=== PATIENT | female | born 1960 | race Two or more races ===

== ENCOUNTER 2022-11-20 14:57 | Outpatient (REF) | payer OTHER, SELFPAY ==
--- NOTE | ~2022-11-20 | MM_ITS ---
EXAMINATION: MM SCREENING DIGITAL BREAST TOMOSYNTHESIS, BILATERAL CLINICAL INFORMATION: Screening. Asymptomatic. The lifetime risk of breast cancer based on the Tyrer-Cuzick Model is 4%. COMPARISON: Outside mammography: 03/23/2019, 12/02/2017 ([facility]). TECHNIQUE: Digital breast tomosynthesis is performed in both the craniocaudal and mediolateral oblique views along with computer-aided detection (CAD). Synthesized 2D images are generated from the tomosynthesis. FINDINGS: There are scattered areas of fibroglandular density (ACR BI-RADS breast composition Category b). There are no significant masses, abnormal calcifications, or other abnormalities. There is no developing density or architectural abnormality. There are scattered bilateral vascular calcifications including the anterior 9:00 left breast and mid central right breast. The axilla and skin contours are unremarkable. MM/MM tomosynthesis screening BI IMPRESSION: No mammographic evidence of malignancy. ASSESSMENT: BI-RADS 2: Benign RECOMMENDATION: Routine annual mammography screening. This patient's information was entered into a reminder system with a target due date for their next mammogram.
== END 2022-11-20 14:58 | disposition home or self-care (01) ==
LOC: HO.MAMMO 14:57
PROVIDERS: PCP Nurse Practitioner Family; Visit Provider Nurse Practitioner Family
DX: Z12.31 Encounter for screening mammogram for malignant neoplasm of breast (principal)
CPT/HCPCS: 77063; 77067

== ENCOUNTER 2023-03-18 08:29 | Outpatient (REF) | payer OTHER, SELFPAY ==
[2023-03-18 08:43] LABS: MANUAL DIFF FLAG NO
[2023-03-18 08:49] LABS: Basophils Absolute Auto 0.1 X10*3/uL (0.0-0.2); Basophils Percent Auto 0.6 % (0-2); Eosinophils Absolute Auto 0.2 X10*3/uL (0.0-0.4); Eosinophils Percent Auto 2.1 % (0-4); Imm Gran Abs Auto 0.01 X10*3/uL (0.00-0.03); Imm Gran Pct Auto 0.1 % (0.0-0.4); Lymphocytes Absolute Auto 3.3 X10*3/uL (1.2-4.9); Lymphocytes Percent Auto 42.4 % (20-40); Mean Corpuscular HGB Conc 32.6 g/dl (31.0-35.0); Mean Corpuscular Hemoglobin 29.2 pg (27.0-33.0); Mean Corpuscular Volume 89.7 fL (80.0-98.0); Mean Platelet Volume 10.4 fL (9.4-12.3); Monocytes Absolute Auto 0.5 X10*3/uL (0.1-1.2); Monocytes Percent Auto 6.8 % (2-11); Neutrophils Absolute Auto 3.7 x10*3/uL (2.0-8.3); Platelet Count 270 X10*3/uL (160-400); Red Blood Count 5.13 X10*6/uL (4.20-5.50); Red Cell Distribution Width 14.1 % (11.0-16.0); White Blood Count 7.8 X10*3/uL (4.8-10.8)
[2023-03-18 09:24] LABS: Alanine Aminotransferase 24 U/L (0-31); Albumin Level 4.6 g/dL (3.5-5.0); Alkaline Phosphatase 96 U/L (39-117); Anion Gap 12 (12-20); Aspartate Amino Transferase 32 U/L (5-31); Blood Urea Nitrogen 9 mg/dL (9-16); Calcium 9.8 mg/dL (8.4-10.2); Carbon Dioxide 28 mmol/L (22-29); Chloride 105 mmol/L (96-108); Cholesterol 264 mg/dL (<200); Estimated Glomerular Filt Rate > 60; Glucose Random 105 mg/dL (60-115); HDL Cholesterol 53 mg/dL (>40); LDL Cholesterol Calculated 172 mg/dL (<100); Potassium 4.4 mmol/L (3.3-5.1); Sodium 141 mmol/L (135-145); Total Protein 7.8 g/dL (6.5-8.0); Triglycerides 198 mg/dL (<150)
[2023-03-18 09:43] LABS: TSH reflex Free T4 2.27 uIU/mL (0.32-4.0); Vitamin D 25-OH Total 40.4 ng/mL (>30)
== END 2023-03-18 08:30 | disposition home or self-care (01) ==
LOC: HO.LAB 08:29
PROVIDERS: PCP Nurse Practitioner Family; Visit Provider Nurse Practitioner Family
DX: Z13.220 Encounter for screening for lipoid disorders (principal); Z13.29 Encounter for screening for other suspected endocrine disorder; Z13.0 Encounter for screening for diseases of the blood and blood-forming organs and certain disorders involving the immune mechanism; Z13.21 Encounter for screening for nutritional disorder
CPT/HCPCS: 36415; 80053; 80061; 82306; 84443; 85025

== ENCOUNTER 2023-04-01 13:37 | Outpatient (REF) | payer OTHER, SELFPAY ==
[2023-04-01 17:27] LABS: CT PCR NOT DETECTED (Not Detect.); NG PCR NOT DETECTED (Not Detect.)
[2023-04-05 22:59] LABS: HPV mRNA E6/E7 rflx Not Detected (Not Detected)
== END 2023-04-01 13:38 | disposition home or self-care (01) ==
LOC: HO.LNP 13:37
PROVIDERS: PCP Nurse Practitioner Family; Visit Provider Advanced Practice Midwife
DX: Z01.419 Encounter for gynecological examination (general) (routine) without abnormal findings (principal); Z20.2 Contact with and (suspected) exposure to infections with a predominantly sexual mode of transmission
CPT/HCPCS: 0353U; 87624; 88142; 99386

== ENCOUNTER 2023-04-01 13:37 | Outpatient (AMB) | payer OTHER, SELFPAY ==
--- NOTE | 2023-04-01 13:42 | MHC.OFFVIS ---
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 Scribed for CHRIS Mcgee by Cassy Alvarez, medical equipment technician, on 04/01/2023 at 1:52 pm, EST. Sr. Manager Corporate Communications Required: Yes Sr. Manager Corporate Communications Language: Station Tender Name: Ekaterina Information Interpreted: non-clinical & clinical Academic Tutor: Academic Tutor Present (Ekaterina) Allergies No Known Allergies Allergy (Verified 04/01/23 13:45) HPI HPI Comments History of Present Illness Details She is a postmenopausal woman presenting for annual exam. Doing well with no manager research development concerns. Tries to eat healthy and stay active. Good calcium and vitamin D intake. She walks to help with her high cholesterol. Currently sexually active with her spouse. Denies vaginal itching and irritation. STD screening offered; she accepts. Denies family history of breast, colon and ovarian cancer. Last pap smear 2018. She reports they were normal. Last mammogram was 11/20/2022 ([facility]) Last colonoscopy was in 11/2018. [facility] Medical History (Updated 04/01/23 @ 14:01 by Cassy Alvarez) Tubular adenoma History of stroke Surgical History (Updated 04/01/23 @ 13:58 by Cassy Alvarez) History of hernia surgery History of endoscopy History of colonoscopy Family History Mother No problems noted. Father No problems noted. 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 Cognitive needs: No Hearing needs: No Vision needs: Yes (glasses) Female Reproductive History Menstrual Menopause type: natural Total pregnancies: 2 Full term: 2 Number of Living Children: 2 Date of Mammogram: 11/20/22 ([facility]) Review of Systems Const All systems reviewed & are unremarkable except as noted in HPI and below Physical Exam Vital Signs: Last Vital Signs BP 120/82 04/01/23 13:43 BMI result Body Mass Index 28.1 Const General: cooperative, healthy appearing, no acute distress, well developed and alert Orientation/consciousness: patient oriented x3 HEENT Head: Yes normal to inspection Eyes General: appearance normal, both eyes and all related structures Neck Neck: Yes normal visual inspection Thyroid: Thyroid normal Chest Chest palpation & inspection: normal inspection of the chest Breast/axilla inspection: normal inspection of the breasts (no puckering, dimpling, peau de orange, retraction, discharge, masses) Breast/axilla palpation: normal palpation of the breasts Resp Effort & Inspection: normal respiratory effort GI Inspection: Yes normal to inspection Palpation (GI): Soft to palpation Rectal Exam - Female: deferred General: Yes bladder normal to inspection and Yes bladder normal to palpation External Female Exam: normal external appearance and normal appearance of the urethra Speculum Exam - Vagina: normal palpation and vagina atrophic Speculum Exam - Cervix: normal palpation Bimanual exam- vagina & uterus: normal bimanual exam, normal palpation, uterine size normal, bladder normal to palpation and normal palpation Bimanual Exam- Adnexa, other: normal adnexae and no masses Skin General skin exam: no rashes or lesions noted Neuro General: patient oriented x3 Cognition (Neuro): normal cognition Extrem General: Yes normal to inspection Psych Attitude: cooperative Thought process: Normal thought process present Assessment & Plan Assessment & Plan (1) Encounter for annual routine gynecological examination: Code(s): Z01.419 - Encounter for gynecological examination (general) (routine) without abnormal findings Plan: Discussed: Current recommendations for pap smears per ASCCP guidelines. Breast awareness and periodic self breast exams. Encouraged yearly mammograms. Maintaining a healthy lifestyle including a well balanced diet including Calcium and Vitamin D and routine exercise. STD screening offered; she accepts. Encouraged patient to sign up for patient portal. Contact office with any PMB. All of her questions and concerns were addressed to the best of my ability. RTO in 1 year for AG. Orders: Orders Pap Smear Today Z01.419 - Encounter for gynecological examination (general) (routine) without abnormal findings CT NG by PCR Today Z20.2 - Contact with and (suspected) exposure to infections with a predominantly sexual mode of transmission Coding Level of Care Code New Pt Prev Care 40-64y(71521) Diagnoses Encounter for annual routine gynecological examination Z01.419
[2023-04-01 13:43] VITALS: BP 120/82; BMI 28.1
== END 2023-04-01 14:05 | disposition home or self-care (01) ==
PROVIDERS: PCP Nurse Practitioner Family; Visit Provider Advanced Practice Midwife
DX: Z01.419 Encounter for gynecological examination (general) (routine) without abnormal findings (principal)
CPT/HCPCS: 99386

== ENCOUNTER 2023-08-20 09:36 | Outpatient (AMB) | payer OTHER, SELFPAY ==
--- NOTE | 2023-08-20 09:57 | A.OFFPC_ITS ---
Vital Signs 08/20/23 09:58 Height 5 ft 2.5 in Weight 145 lb 4 oz BMI 26.1 BP 136/68 Blood Pressure Location Lt brachial Position Sitting Respiration 12 Pulse 78 Pulse Source Pulse Oximeter Temp 97.5 F Temp Source Temporal Artery Scan Pulse Oximetry (%) 98 Oxygen Delivery Method Room Air Intake Visit Reasons: TC Cassy O/Fatty liver Intake Note: Patient is here for transfer of care with a history of a fatty liver. Formation Fracturing Operator Required: Yes Formation Fracturing Operator Language: Central African Accompanied by: Self / Same As Patient Allergies No Known Allergies Allergy (Verified 08/20/23 10:40) Medication List - Last Reconciled 08/20/23 by OLY Fuller- No Known Home Meds Tobacco use date assessed: 10/05/22 Dental Screening Dental Screen Date: 08/20/23 Did you have a dental visit in the last 12 months?: Yes Did you have a dental problem in the last 6 months where you did not have access to dental care?: No Was dental information given to patient?: Patient has dentist HPI HPI Comments History of Present Illness Details 62-year-old female with hyperlipidemia, MDD, H. 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 US done per her reports 11/2022,i do not have copies. No longer following w/ them for this. Reports itchy eyes, feels like sand. Had eye exam at [facility] 02/2023 - findings suggest hypermetropia, astigmatism and presbyopia Wearing glasses wants new referral to optho for mgmt Labs 04/2023 done in [place] cont to show hyperlipidemia, CMP WNL. Also reports wt loss a lot without trying over a short time . Explains further 158lbs (i dont know when this was). 145lbs. In [place] felt thirsty, worried about DM, Checked glucose 127 today it was 102 Wonders if she needs medications. HLD not on meds, interested. Repeat colon scheduled 07/2023 and cancelled by office. due 11/2023. I have asked her to schedule this. MDD - marital problems. Feels safe. Wants to talk to counselor RADHA morrow. doing home exercise. sx worse at HS. Declines referral to ortho. [facility] Medical History Tubular adenoma History of stroke Surgical History History of hernia surgery History of endoscopy History of colonoscopy Family History Mother No problems noted. Father No problems noted. 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 1. Little interest or pleasure in doing things: not at all 2. Feeling down, depressed, or hopeless: not at all 3. Trouble falling or staying asleep, or sleeping too much: not at all 4. Feeling tired or having little energy: not at all 5. Poor appetite or overeating: not at all 6. Feeling bad about yourself - or that you are a failure or have let yourself or your family down: not at all 7. Trouble concentrating on things, such as reading the newspaper or watching television: not at all 8. Moving or speaking so slowly that other people could have noticed. Or the opposite - being so fidgety or restless that you have been moving around a lot more than usual: not at all 9. Thoughts that you would be better off or of hurting yourself in some way: not at all Total score: 0 Depression Screening Interpretation: Negative Depression Screening Done: Yes 74363 - PHQ-9 Billing: Yes Source: Developed by Drs. Ming Dela Cruz, Pete Cooper and colleagues, with an educational yung from [employer]. Thrive Questionnaire Date Thrive assessed: 08/20/23 I am a: Patient What is your living situation today?: I have a steady place to live Within the past 12 months, did the food you bought not last and you didn't have the money to get more?: Never true Within the past 12 months, did you worry whether your food would run out before you got money to buy more?: Never true Do you have trouble paying for medicines?: No Do you have trouble getting transportation to medical appointments?: No Do you have trouble paying your heating and electricity bill?: No Do you have trouble taking care of your child, family member or friend?: No Do you have trouble with day-to-day activities such as bathing, preparing meals, shopping, managing finances, etc.?: No Are you currently unemployed and looking for a job?: No Are you interested in more education?: No Please select the resources that you would like help with: None Currently or been in a relationship where the following occur: no concerns reported THRIVE Score: 0 AUDIT C Alcohol Use Questionnaire (AUDIT-C) 1. How often do you have a drink containing alcohol?: Never 3. How often do you have six or more drinks on one occasion?: Never Total Score: 0 Score Reviewed/Action Taken: Yes MCAK-7 AMB Questionnaire MACK-7 Date MACK - 7 assessed: 08/20/23 Feeling nervous, anxious, or on edge: 0 = Not at all Not being able to stop or control worryin = Not at all Worrying too much about different things: 0 = Not at all Trouble relaxin = Not at all Being so restless that it is hard to sit still: 0 = Not at all Becoming easily annoyed or irritable: 0 = Not at all Feeling afraid as if something awful might happen: 0 = Not at all Total MACK-7 score (0-4 normal; 5-9 mild; 10-14 moderate; 15-21 severe): 0 Source: Developed by Drs. Ming Dela Cruz, Pete Cooper and colleagues, with an educational yung from [employer]. MACK-7 Assessment Billing MACK-7 Assessment Tool: MACK-7 Assessment 61194 Review of Systems Const All systems reviewed & are unremarkable except as noted in HPI and below Physical exam (Primary Care) Vital Signs: Last Vital Signs Temp 97.5 F 08/20/23 09:58 Pulse 78 08/20/23 09:58 Resp 12 08/20/23 09:58 BP 136/68 08/20/23 09:58 Pulse Ox 98 08/20/23 09:58 Oxygen Delivery Method Room Air 08/20/23 09:58 BMI result Body Mass Index 26.1 Tobacco/Smoking Status: Tobacco use Status Tobacco use date assessed 10/05/22 08/20/23 10:10 Patient Tobacco Use Status Never used Tobacco 08/20/23 10:10 e-Cigarette/Vaping Use Never Used 08/20/23 10:10 PHQ-9: PHQ-9 Score PHQ-9: Total score 0 08/20/23 10:34 Depression Screening Interpretation: Negative Thrive Assessment: Date of Thrive Assessment Date Thrive assessed 08/20/23 08/20/23 10:10 Currently or been in a relationship where the following occur: no concerns reported Const Other: Awake alert NAD Scleras nonicteric MMM RRR LS CTAB Abd soft, nontender, no hepatomegaly Assessment and Plan Assessment & Plan (1) Fatty liver: Comment: US November 2022 n/a to me GI at [facility] Check labs today. Code(s): K76.0 - Fatty (change of) liver, not elsewhere classified (2) Hyperlipidemia: Comment: LDL > goal on labs 04/2023. Plan to repeat labs today and start atorvastatin 40mg QHS Code(s): E78.5 - Hyperlipidemia, unspecified Qualifiers: Hyperlipidemia type: mixed hyperlipidemia Qualified Code(s): E78.2 - Mixed hyperlipidemia (3) Post-menopause: Comment: DEXA due ... will need to order at next visit Code(s): Z78.0 - Asymptomatic menopausal state (4) Weight loss, non-intentional: Comment: subjective. I dont have clinical trending for this. Will check labs. Encouraged to call GI to schedule 5 year recall due 11/2023. Code(s): R63.4 - Abnormal weight loss (5) Screening for diabetes mellitus: Code(s): Z13.1 - Encounter for screening for diabetes mellitus (6) MDD (major depressive disorder), recurrent episode: Comment: not on meds, related to marital relations. Feels safe. Referred for counseling Code(s): F33.9 - Major depressive disorder, recurrent, unspecified Qualifiers: Major depression episode severity: mild Qualified Code(s): F33.0 - Major depressive disorder, recurrent, mild (7) Hypermetropia of both eyes: Comment: refer to Optho. Last exam 2022 at [facility] Code(s): H52.03 - Hypermetropia, bilateral Plan: This note is constructed using voice recognition software. While every effort has been made to ensure accuracy in worm packer, still errors may have been included Sometimes, these errors may affect the content or meaning of the given sentence . Total time spent caring for the patient today was 60 minutes. This includes time spent before the visit reviewing the chart, time spent during the visit, and time spent after the visit on documentation Plan RTO in 2-3 weeks fu on labs and wt loss Orders: Orders Comprehensive [place]. Panel Fast Today E78.5 - Hyperlipidemia, unspecified, K76.0 - Fatty (change of) liver, not elsewhere classified, R63.4 - Abnormal weight loss, Z78.0 - Asymptomatic menopausal state Lipid Panel Today E78.5 - Hyperlipidemia, unspecified, K76.0 - Fatty (change of) liver, not elsewhere classified, R63.4 - Abnormal weight loss, Z78.0 - Asymptomatic menopausal state TSH reflex Free T4 Today E78.5 - Hyperlipidemia, unspecified, K76.0 - Fatty (change of) liver, not elsewhere classified, R63.4 - Abnormal weight loss, Z78.0 - Asymptomatic menopausal state Hemoglobin A1c Today Z13.1 - Encounter for screening for diabetes mellitus Microalbumin, Random (w Creat) Today E78.5 - Hyperlipidemia, unspecified, K76.0 - Fatty (change of) liver, not elsewhere classified, R63.4 - Abnormal weight loss Vitamin D 1,25 dihydroxy Today E78.5 - Hyperlipidemia, unspecified, K76.0 - Fatty (change of) liver, not elsewhere classified, R63.4 - Abnormal weight loss, Z78.0 - Asymptomatic menopausal state Complete Blood Count no Diff Today E78.5 - Hyperlipidemia, unspecified, K76.0 - Fatty (change of) liver, not elsewhere classified, R63.4 - Abnormal weight loss, Z78.0 - Asymptomatic menopausal state Referrals Counseling Referral F33.9 - Major depressive disorder, recurrent, unspecified Ophthalmology Referral H52.03 - Hypermetropia, bilateral Medications: New atorvastatin 40 mg PO DAILY 90 tabs 1RF Coding Level of Care Code Est Pt Level 5 (68843) Diagnoses Fatty liver K76.0 Mixed hyperlipidemia E78.2 Hyperlipidemia type: mixed hyperlipidemia Post-menopause Z78.0 Weight loss, non-intentional R63.4 Screening for diabetes mellitus Z13.1 Mild episode of recurrent major depressive disorder F33.0 Major depression episode severity: mild Hypermetropia of both eyes H52.03 Additional Codes MACK-7 Assessment Billing - MACK-7 Assessment Tool: MACK-7 Assessment [id number] ([id number])
[2023-08-20 09:58] VITALS: BP 136/68; PULSE 78; RESP 12; TEMP 36.4; O2SAT 98; BMI 26.1
== END 2023-08-20 11:22 | disposition home or self-care (01) ==
PROVIDERS: PCP Nurse Practitioner Family; Visit Provider Nurse Practitioner Family
DX: K76.0 Fatty (change of) liver, not elsewhere classified (principal); F33.0 Major depressive disorder, recurrent, mild; E78.2 Mixed hyperlipidemia; Z78.0 Asymptomatic menopausal state; R63.4 Abnormal weight loss; Z13.1 Encounter for screening for diabetes mellitus; H52.03 Hypermetropia, bilateral
CPT/HCPCS: 99215

== ENCOUNTER 2023-08-20 11:10 | Outpatient (REF) | payer OTHER, SELFPAY ==
[2023-08-20 14:22] LABS: Hematocrit 45.5 % (37.0-47.0); Hemoglobin 14.8 g/dl (12.0-16.0); Mean Corpuscular HGB Conc 32.5 g/dl (31.0-35.0); Mean Corpuscular Hemoglobin 29.6 pg (27.0-33.0); Mean Platelet Volume 11.7 fL (9.4-12.3); Platelet Count 248 X10*3/uL (160-400); Red Cell Distribution Width 13.6 % (11.0-16.0); White Blood Count 7.8 X10*3/uL (4.8-10.8)
[2023-08-20 14:41] LABS: Estimated Average Glucose 114 mg/dL; Hemoglobin A1c % 5.6 % (<6.0)
[2023-08-20 15:04] LABS: Alanine Aminotransferase 19 U/L (0-31); Albumin Level 4.6 g/dL (3.5-5.0); Alkaline Phosphatase 93 U/L (39-117); Anion Gap 11 (12-20); Aspartate Amino Transferase 23 U/L (5-31); Bilirubin Total 0.5 mg/dL (0.0-1.0); Blood Urea Nitrogen 12 mg/dL (9-16); Calcium 9.9 mg/dL (8.4-10.2); Carbon Dioxide 29 mmol/L (22-29); Chloride 105 mmol/L (96-108); Cholesterol 220 mg/dL (<200); Estimated Glomerular Filt Rate > 60; Glucose Fasting 95 mg/dL (60-99); HDL Cholesterol 57 mg/dL (>40); LDL Cholesterol Calculated 123 mg/dL (<100); Potassium 4.3 mmol/L (3.3-5.1); Sodium 141 mmol/L (135-145); Total Protein 7.8 g/dL (6.5-8.0); Triglycerides 200 mg/dL (<150)
[2023-08-20 15:23] LABS: TSH reflex Free T4 1.89 uIU/mL (0.32-4.0)
[2023-08-25 13:04] LABS: VITAMIN D (1,25 OH) D3 67 pg/mL; Vit D (1,25-Dihydroxy) Total 67 pg/mL (18-72); Vitamin D (1,25 OH) D2 <8 pg/mL
== END 2023-08-20 11:11 | disposition home or self-care (01) ==
LOC: HO.WFDLDS 11:10
PROVIDERS: Visit Provider Nurse Practitioner Family
DX: E78.5 Hyperlipidemia, unspecified (principal); K76.0 Fatty (change of) liver, not elsewhere classified; R63.4 Abnormal weight loss; Z13.1 Encounter for screening for diabetes mellitus; Z78.0 Asymptomatic menopausal state
CPT/HCPCS: 36415; 80053; 80061; 82652; 83036; 84443; 85027

== ENCOUNTER 2023-08-20 11:19 | Outpatient (REF) | payer OTHER, SELFPAY ==
[2023-08-20 14:53] LABS: Creatinine Urine 18.47 mg/dL; Microalbumin Urine < 5.0 mg/L
== END 2023-08-20 11:20 | disposition home or self-care (01) ==
LOC: HO.WFDLDS 11:19
PROVIDERS: Visit Provider Nurse Practitioner Family
DX: R63.4 Abnormal weight loss (principal); E78.5 Hyperlipidemia, unspecified; K76.0 Fatty (change of) liver, not elsewhere classified; Z78.0 Asymptomatic menopausal state
CPT/HCPCS: 82570

== ENCOUNTER 2023-09-20 12:23 | Outpatient (AMB) | payer OTHER, SELFPAY ==
--- NOTE | 2023-09-20 12:33 | MHC.PC.OV ---
Vital Signs 09/20/23 12:37 Height 5 ft 2.5 in Weight 147 lb BMI 26.5 BP 110/72 Blood Pressure Location Rt brachial Position Left Lateral Respiration 16 Pulse 73 Pulse Source Pulse Oximeter Temp 98.1 F Temp Source Oral Pulse Oximetry (%) 99 Oxygen Delivery Method Room Air Intake Visit Reasons: fu labs/wt loss Intake Note: Follow up. Lab results from August. Cold sxs started last week. SOB and cough started last night. No recent covid, flu, RSV tests Corporate Logistics Manager Required: Yes Allergies No Known Allergies Allergy (Verified 09/20/23 12:48) Medication List - Last Reconciled 09/20/23 by Tsering Carlos, ROOF CEMENT AND PAINT MAKER HELPER- atorvastatin 40 mg PO DAILY Tobacco use date assessed: 10/05/22 Dental Screening Dental Screen Date: 08/20/23 Did you have a dental visit in the last 12 months?: Yes Did you have a dental problem in the last 6 months where you did not have access to dental care?: No Was dental information given to patient?: Patient has dentist HPI HPI Comments History of Present Illness Details 62-year-old Pashto-speaking female with hyperlipidemia, MDD, H. pylori, osteoarthritis of left AC joint, CAD, CTS bilat, fatty liver, sciatica Specialists rn residential GI at [facility] maintenance Colonoscopy November 2018 positive tubular adenoma repeat in 5 years, scheduled 11/2023 DEXA * order today Pap 2019 within normal limits, March 2023 within normal limits Mammo 11/20/2022 BI-RADS 2 Had eye exam at [facility] 02/2023 - findings suggest hypermetropia, astigmatism and presbyopia Wearing glasses Corporate Logistics Manager [id number] Here today to f/u on lab results, weight loss & also c/o cold like sx cough that started 10 days ago, has felt febrile, runny nose, chest congestion, sore throat, feeling SOB Tried cough drops & tea Her weight is stable. Tells me today that she has worked really hard to alter her diet and reduce fatty foods and to intentionally lose weight to help her fatty liver. Labs from 08/20/2023 showing normal CBC, normal CMP, hemoglobin A1c 5.6 elevated total cholesterol 220, LDL 123, triglycerides 200, HDL 57, normal vitamin-D, normal TSH, normal urine microalbumin creatinine ratio [facility] Medical History Tubular adenoma History of stroke Surgical History History of hernia surgery History of endoscopy History of colonoscopy Family History Mother No problems noted. Father No problems noted. 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 Depression Screening Interpretation: Negative Depression Screening Done: Yes Source: Developed by Drs. Ming Dela Cruz, Shavon Garcia, Pete Michaels and colleagues, with an educational yung from [employer]. Thrive Questionnaire Date Thrive assessed: 08/20/23 Currently or been in a relationship where the following occur: no concerns reported THRIVE Score: 0 MACK-7 AMB Questionnaire MACK-7 Date MACK - 7 assessed: 08/20/23 Source: Developed by Drs. Ming Dela Cruz, Shavon Garcia, Pete Michaels and colleagues, with an educational yung from [employer]. Review of Systems Const All systems reviewed & are unremarkable except as noted in HPI and below Physical exam (Primary Care) Vital Signs: Last Vital Signs Temp 98.1 F 09/20/23 12:37 Pulse 73 09/20/23 12:37 Resp 16 09/20/23 12:37 BP 110/72 09/20/23 12:37 Pulse Ox 99 09/20/23 12:37 Oxygen Delivery Method Room Air 09/20/23 12:37 BMI result Body Mass Index 26.5 Tobacco/Smoking Status: Tobacco use Status Tobacco use date assessed 10/05/22 09/20/23 12:42 Patient Tobacco Use Status Never used Tobacco 09/20/23 12:42 e-Cigarette/Vaping Use Never Used 09/20/23 12:42 Depression Screening Interpretation: Negative Thrive Assessment: Date of Thrive Assessment Date Thrive assessed 08/20/23 09/20/23 12:42 Currently or been in a relationship where the following occur: no concerns reported Const Other: Awake alert NAD , mildly ill-appearing Scleras nonicteric TM intact and clear bilat Nares with clear discharge bilat, no sinus tenderness with palpation Pharynx clear, postnasal drip MMM RRR LS CTAB, dry cough noted during exam without distress Abd soft, nontender, no hepatomegaly Assessment and Plan Assessment & Plan (1) Post-menopause: Comment: DEXA ordered today. Code(s): Z78.0 - Asymptomatic menopausal state (2) Hyperlipidemia: Comment: LDL >goal start atorvastatin 40mg QHS Labs from 08/20/2023 elevated total cholesterol 220, LDL 123, triglycerides 200, HDL 57 Recheck labs in 3 months Code(s): E78.5 - Hyperlipidemia, unspecified Qualifiers: Hyperlipidemia type: mixed hyperlipidemia Qualified Code(s): E78.2 - Mixed hyperlipidemia (3) Fatty liver: Comment: [place] November 2022 n/a to [facility] GI at [place] Labs from 08/20/2023 showing normal CBC, normal CMP, hemoglobin A1c 5.6 elevated total cholesterol 220, LDL 123, triglycerides 200, HDL 57, normal vitamin-D, normal TSH, normal urine microalbumin creatinine ratio Code(s): K76.0 - Fatty (change of) liver, not elsewhere classified (4) URI (upper respiratory infection): Code(s): J06.9 - Acute upper respiratory infection, unspecified Qualifiers: URI type: acute nasopharyngitis (common cold) Qualified Code(s): J00 - Acute nasopharyngitis [common cold] Plan: We will treat with Mucinex and Flonase. Advised if her symptoms worsen or do not improve to return to the office for further management. Plan This note is constructed using voice recognition software. While every effort has been made to ensure accuracy in pack press operator, still errors may have been included Sometimes, these errors may affect the content or meaning of the given sentence . Total time spent caring for the patient today was 60 minutes. This includes time spent before the visit reviewing the chart, time spent during the visit, and time spent after the visit on documentation Orders: Orders XR DEXA axial skeleton Today Z78.0 - Asymptomatic menopausal state Comprehensive [place]. Panel Fast 12/20/23 E78.5 - Hyperlipidemia, unspecified, K76.0 - Fatty (change of) liver, not elsewhere classified Lipid Panel 12/20/23 E78.5 - Hyperlipidemia, unspecified, K76.0 - Fatty (change of) liver, not elsewhere classified Medications: New guaifenesin ER (Mucinex) 600 mg PO Q12H PRN 20 tabs 0RF congestion 10 days fluticasone propionate 50 mcg/actuation administer into each nostril 1 spray intranasal BID 16 grams 0RF Refilled atorvastatin 40 mg PO DAILY 90 tabs 1RF Patient Instructions: Return to office in 3 months to follow up on hyperlipidemia, fatty liver. Get labs done 1 week before this appointment Coding Level of Care Code Est Pt Level 5 (25420) Diagnoses Post-menopause Z78.0 Mixed hyperlipidemia E78.2 Hyperlipidemia type: mixed hyperlipidemia Fatty liver K76.0 Acute nasopharyngitis J00 URI type: acute nasopharyngitis (common cold)
[2023-09-20 12:37] VITALS: BP 110/72; PULSE 73; RESP 16; TEMP 36.7; O2SAT 99; BMI 26.5
== END 2023-09-20 13:02 | disposition home or self-care (01) ==
PROVIDERS: PCP Nurse Practitioner Family; Visit Provider Nurse Practitioner Family
DX: E78.2 Mixed hyperlipidemia (principal); J00 Acute nasopharyngitis [common cold]; Z78.0 Asymptomatic menopausal state; K76.0 Fatty (change of) liver, not elsewhere classified
CPT/HCPCS: 99215

== ENCOUNTER 2023-10-15 12:23 | Outpatient (REF) | payer OTHER, SELFPAY ==
--- NOTE | ~2023-10-15 | MM_ITS ---
EXAMINATION: BONE DENSITOMETRY CLINICAL INDICATION: Asymptomatic menopausal state. COMPARISON: This is the patient's baseline examination. TECHNIQUE: Using a Infotop DXA System (software version: 13.1) manufactured by [employer], dual-energy x-ray absorptiometry was performed of the lumbar spine and left hip. The images are of good technical quality. Summary results are attached. FINDINGS: LEFT FEMUR, NECK: BMD 0.849 g/cm2, Z-score 0.0, T-score -1.4, osteopenia. LEFT FEMUR, TOTAL: BMD 0.881 g/cm2, Z-score 0.1, T-score -1.0, normal. AP SPINE L1-L4: BMD 0.726 g/cm2, Z-score -2.3, T-score -3.8, osteoporosis. IDENTIFIED RISK FACTORS: Menopause. HISTORY OF FRACTURE: None listed. MEDICATIONS: Calcium, multivitamin, vitamin D. MM/XR DEXA axial skeleton IMPRESSION: 1. DIAGNOSIS: Osteoporosis based on the lowest T-score value of -3.8 in the lumbar spine applying World Health Organization criteria. 2. 10-YEAR FRACTURE RISK PREDICTION, FRAX: According to the guidelines, FRAX calculation should only be performed on patients in the osteopenia bone density category. Therefore, FRAX was not performed on this patient.? 3. Treatment Recommendations: NOF guidelines recommend consideration for treatment in postmenopausal women and men age 50 and older presenting with the following: -A hip or vertebral (clinical or morphometric) fracture. -T-score less than or equal to -2.5 at the femoral neck or spine after appropriate evaluation to exclude secondary causes. -Low bone mass at the hip or spine and a 10-year fracture probability by FRAX of greater than or equal to 3% for hip fracture or greater than or equal to 20% for major osteoporotic fracture based on the [place] adapted WHO algorithm. 4. Other Recommendations: All treatment decisions require clinical judgment and consideration of individual patient factors, including patient preferences, comorbidities, previous drug use, risk factors not captured in the FRAX model (e.g. frailty, falls, vitamin D deficiency, increased bone turnover, interval significant decline in bone density) and possible under or overestimation of fracture risk by FRAX. Additional medical evaluation for secondary cause of low bone mineral density may be appropriate. FUTURE SCAN RECOMMENDATION: People with diagnosed cases of osteoporosis or at high risk for fracture should have regular bone mineral density tests. For patients eligible for Medicare, routine testing is allowed once every 2 years. The testing frequency can be increased to one year for patients who have rapidly progressing disease, those who are receiving or discontinuing medical therapy to restore bone mass, or have additional risk factors. .
== END 2023-10-15 12:24 | disposition home or self-care (01) ==
LOC: HO.MAMMO 12:23
PROVIDERS: PCP Nurse Practitioner Family; Visit Provider Nurse Practitioner Family
DX: Z13.820 Encounter for screening for osteoporosis (principal); Z78.0 Asymptomatic menopausal state
CPT/HCPCS: 77080

== ENCOUNTER 2024-04-04 15:42 | Outpatient (REF) | payer OTHER, SELFPAY ==
[2024-04-06 11:33] LABS: Bacterial Vaginosis PCR NEGATIVE (Negative); Candida Group PCR NOT DETECTED (Not Detect); Candida glab krusei PCR NOT DETECTED (Not Detect); Trichomonas vaginalis PCR NOT DETECTED (Not Detect)
== END 2024-04-04 15:43 | disposition home or self-care (01) ==
LOC: HO.LNP 15:42
PROVIDERS: PCP Nurse Practitioner Family; Visit Provider Obstetrics & Gynecology
DX: Z01.419 Encounter for gynecological examination (general) (routine) without abnormal findings (principal)
CPT/HCPCS: 0352U; 99396

== ENCOUNTER 2024-04-04 15:42 | Outpatient (AMB) | payer OTHER, SELFPAY ==
[2024-04-04 15:43] VITALS: BP 122/76; BMI 26.3
--- NOTE | 2024-04-04 15:43 | A.OFFVIS_ITS ---
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 No complaints. Last Pap/HPV was negative in 04/12 Last Mammogram was BI-RADS 2 in 12/11 Last Colonoscopy was done at [place] in 10/11 according to patient Nevaeh recommendation was to repeat in 10 years. [facility] Medical History Tubular adenoma History of stroke Surgical History History of hernia surgery History of endoscopy History of colonoscopy Family History Mother No problems noted. Father No problems noted. 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 Cognitive needs: No Hearing needs: No Vision needs: Yes (glasses) Female Reproductive History Menstrual Menopause type: natural Date of last pap smear: 04/02/23 Date of Mammogram: 11/20/22 Date of last Bone Density Screenin10/15/23 Review of Systems Const All systems reviewed & are unremarkable except as noted in HPI and below Card Reports as per HPI Resp Reports as per HPI GI Reports as per HPI and Reports no additional complaints Reports as per HPI Physical Exam Vital Signs: Last Vital Signs BP 122/76 04/04/24 15:43 BMI result Body Mass Index 26.3 Const General: cooperative, healthy appearing and comfortable Chest Chest palpation & inspection: normal inspection of the chest and normal palpation of entire chest wall Breast/axilla inspection: normal inspection of the breasts and normal inspection of the axillae Breast/axilla palpation: normal palpation of the breasts, normal palpation of the axillae and no axillary lymphadenopathy Resp Effort & Inspection: normal respiratory effort Auscultation: clear to auscultation bilaterally Percussion: percussion normal Cardio Palpation: normal PMI Rate: regular rate Rhythm: regular rhythm Heart sounds: no murmurs and no rubs Peripheral pulses: Peripheral pulses 2+ throughout GI Inspection: Yes normal to inspection Palpation (GI): Soft to palpation, nontender, no guarding, not rigid and No hepatosplenomegaly present Percussion: Yes normal to percussion Auscultation: normal bowel sounds Rectal Exam - Female: deferred General: Yes bladder normal to palpation External Female Exam: No lesion Speculum Exam - Vagina: normal appearance of the vagina, normal palpation, normal vaginal discharge and not erythematous Speculum Exam - Cervix: normal appearance of the cervix and normal palpation Bimanual exam- vagina & uterus: normal bimanual exam, normal palpation, uterine size normal, bladder normal to palpation, consistency normal and normal palpation Bimanual Exam- Adnexa, other: normal adnexae, no masses and no tenderness Assessment & Plan Assessment & Plan (1) Well woman exam: Code(s): Z01.419 - Encounter for gynecological examination (general) (routine) without abnormal findings Category: Medical Plan: Co testing not indicated this year. Counseled the patient about the recommended dietary allowance of 1200 mg of Calcium & 600 IU of vitamin D. Mammogram ordered. The patient was instructed to perform monthly self-breast exams and schedule annual exam in a year. All questions answered and the patient verbalized understanding. Orders: Orders MM tomosynthesis screening BI Today Z12.31 - Encounter for screening mammogram for malignant neoplasm of breast Coding Level of Care Code Est Pt Prev Care 40-64y(36063) Diagnoses Well woman exam Z01.419
== END 2024-04-04 16:23 | disposition home or self-care (01) ==
LOC: HO.HWS 15:42
PROVIDERS: PCP Nurse Practitioner Family; Visit Provider Obstetrics & Gynecology
DX: Z01.419 Encounter for gynecological examination (general) (routine) without abnormal findings (principal)
CPT/HCPCS: 99396

== ENCOUNTER 2024-04-05 08:50 | Outpatient (REF) | payer OTHER, SELFPAY ==
[2024-04-05 11:36] LABS: HBsAGNum1 0.38 S/CO (0.00-0.99); HIV AB/AG Nonreactive (Nonreactive); HIV Num 1 0.05 S/CO (0.00-0.99); Hepatitis B Surface Antigen Negative (Negative); Syphilis Screen Reactive (Nonreactive); ~HepC Num1 0.12 S/CO (0.00-0.79); ~Hepatitis C Antibody Nonreactive (Nonreactive)
[2024-04-06 03:44] LABS: CT PCR NOT DETECTED (Not Detect.); NG PCR NOT DETECTED (Not Detect.)
[2024-04-07 14:35] LABS: RPR Quantitative Non-Reactive (Nonreactive); T.Pallidum Particle Agg Test Reactive (Nonreactive)
== END 2024-04-05 08:51 | disposition home or self-care (01) ==
LOC: HO.LAB 08:50
PROVIDERS: PCP Student in an Organized Health Care Education/Training Program; Visit Provider Obstetrics & Gynecology
DX: Z01.419 Encounter for gynecological examination (general) (routine) without abnormal findings (principal); Z20.2 Contact with and (suspected) exposure to infections with a predominantly sexual mode of transmission
CPT/HCPCS: 36415; 86592; 86780; 86803; 87340; 87389; 87491; 87591

== ENCOUNTER 2024-04-10 13:54 | Outpatient (AMB) | payer OTHER, SELFPAY ==
--- NOTE | 2024-04-10 13:54 | MHC.OFFVIS ---
Intake Visit Reasons: labs results Wire Communications Engineer Required: Yes Wire Communications Engineer Language: Education Department Chair Services: Wire Communications Engineer Present (in person) Wire Communications Engineer Name: Ekaterina ALVAREZ Information Interpreted: non-clinical & clinical Allergies No Known Allergies Allergy (Verified 04/04/24 15:51) HPI Comments Details: The patient is scheduled for tele health visit for abnormal syphilis test. RPR was none reactive ,TPPA and TP EIA both reactive, the patient has no history of prior syphilis. PFSH Medical History Tubular adenoma History of stroke Surgical History History of hernia surgery History of endoscopy History of colonoscopy Family History Mother No problems noted. Father No problems noted. 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 Cognitive needs: No Hearing needs: No Vision needs: Yes (glasses) Review of Systems Const All systems reviewed & are unremarkable except as noted in HPI and below Reports as per HPI and Reports no additional complaints GI Reports no additional complaints Reports no additional complaints Telehealth Telehealth Telehealth Platform: Telephone Location of provider rendering services: practice address Location of patient: address on file Patient Identification confirmed using: Name, : Yes Telehealth method: video Patient verbally consented to treatment: Yes Patient verbally consented to billing insurance company: Yes Patient informed of any privacy concerns related to visit: Yes Assessment & Plan Assessment & Plan (1) Syphilis: Code(s): A53.9 - Syphilis, unspecified Category: Medical Plan: Discussed with the patient her 2 positive treponemal (reactive TPPA and TPA EIA ) and a negative non treponemal tests (negative RPR). Explained to the patient the discordant results in patients with no history of syphilis who are asymptomatic, the possible diagnosis could be late latent syphilis; therefore, the recommendation is to treat with 2.4 million units penicillin IM weekly for 3 weeks and repeat syphilis titers at 6, 12 in 24 months; in addition, explained to the patient that the syphilis is an STD and she is to inform her partner after confirmation of the diagnosis, not to have unprotected intercourse till treatment is complete for both partners. Referral to ID, Dr. Greenwood, placed, for confirmation of the syphilis diagnosis and treatment recommendation. All questions answered, the patient verbalized understanding and agreed with the plan. I spent a total of 20 minutes reviewing the chart, talking to the patient via video and documenting in the medical record. Orders: Referrals Infectious Disease Referral A53.9 - Syphilis, unspecified Coding Level of Care Code Tele Est Pt Level 1 (77432) Diagnoses Syphilis A53.9
== END 2024-04-10 14:57 | disposition home or self-care (01) ==
LOC: HO.HWS 13:54
PROVIDERS: PCP Student in an Organized Health Care Education/Training Program; Visit Provider Obstetrics & Gynecology
DX: A53.9 Syphilis, unspecified (principal)
CPT/HCPCS: 99211

== ENCOUNTER → 2024-04-10 13:54 | Outpatient (BNVA) | payer OTHER, SELFPAY | PROVIDERS: PCP Student in an Organized Health Care Education/Training Program; Visit Provider Obstetrics & Gynecology ==

== ENCOUNTER 2024-04-12 14:30 | Outpatient (AMB) | payer OTHER, SELFPAY ==
--- NOTE | 2024-04-12 15:00 | A.OFFVIS_ITS ---
Vital Signs 04/12/24 15:31 Height 5 ft 2.5 in Weight 66.678 kg BMI 26.5 Pulse 70 Pulse Source Pulse Oximeter Temp 97.8 F Temp Source Oral Pulse Oximetry (%) 99 Oxygen Delivery Method Room Air Intake Visit Reasons: Ref.,Syphilis Mainframe Systems Engineer Required: Yes Mainframe Systems Engineer Services: Mainframe Systems Engineer Present Mainframe Systems Engineer Name: Radha Stubbs CMA Information Interpreted: clinical only Comparative Sociology Professor: Comparative Sociology Professor Present Allergies No Known Allergies Allergy (Verified 04/12/24 15:38) PFSH Medical History Tubular adenoma History of stroke Surgical History History of hernia surgery History of endoscopy History of colonoscopy Family History Mother No problems noted. Father No problems noted. 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
--- NOTE | 2024-04-12 15:07 | MHC.OFFVIS ---
Vital Signs 04/12/24 15:31 Height 5 ft 2.5 in Weight 147 lb BMI 26.5 Pulse 70 Pulse Source Pulse Oximeter Temp 97.8 F Temp Source Oral Pulse Oximetry (%) 99 Oxygen Delivery Method Room Air Intake Visit Reasons: Ref.,Syphilis Allergies No Known Allergies Allergy (Verified 04/12/24 15:38) HPI HPI Ref.,Syphilis: Details: She has positive syphilis treponemal test and screening EIA. Nontreponemal test is negative. She thinks she was treated in past with IM PCN. She has no symptoms. [facility] Medical History Tubular adenoma History of stroke Surgical History History of hernia surgery History of endoscopy History of colonoscopy Family History Mother No problems noted. Father No problems noted. 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 Coding Level of Care Code New Pt Level 3 (60226) Diagnoses Syphilis A53.9
[2024-04-12 15:31] VITALS: PULSE 70; TEMP 36.6; O2SAT 99; BMI 26.5
== END 2024-04-12 17:14 | disposition home or self-care (01) ==
LOC: HO.HID 14:30
PROVIDERS: PCP Student in an Organized Health Care Education/Training Program; Visit Provider Internal Medicine
DX: A53.9 Syphilis, unspecified (principal)
CPT/HCPCS: 99203

== ENCOUNTER → 2024-04-12 14:30 | Outpatient (BNVA) | payer OTHER, SELFPAY | PROVIDERS: PCP Student in an Organized Health Care Education/Training Program; Visit Provider Internal Medicine | DX: A53.9 Syphilis, unspecified (principal) | CPT/HCPCS: 99202 ==